=== PATIENT | female | born 1995 | race Two or more races ===

== ENCOUNTER 2016-08-16 07:26 | Emergency (ER) | payer BC ==
--- NOTE | ~2016-08-16 | ER ---
PATIENT'S NAME: SHALA [facility] AGE: 21 Y [address] ROOM: [place] [id number] LOCATION: [facility] ADMIT DATE: 08/16/2016 ER/Outpatient Report DISCHARGE DATE: 08/16/2016 FAMILY PHYSICIAN: Tsering Mujica MD ATTENDING PHYSICIAN: Nirmala Lange Time of Arrival: 0726 hours. Time of Evaluation: 0731 hours. IDENTIFICATION: A 21-year-old female. CHIEF COMPLAINT: Right-sided pain. HISTORY OF PRESENT ILLNESS: The patient is a 21-year-old female, who has had right upper quadrant pain off and on several times in the last 1 year, but today at 05:40, she woke up with sharp pain in the right upper abdomen. It was 7/10 initially. It is 4/10 now. Nausea, but no vomiting. Last bowel movement was normal. No blood in her stools. No dark, tarry, or black stools. No constipation or diarrhea. No fever or chills. The patient notices this is worse if she goes to bed with full stomach and she did eat Quesadillas last night. ALLERGIES: NO KNOWN DRUG ALLERGIES. CURRENT MEDICATIONS: No current medications. MEDICAL PROBLEMS: No medical problems. PRIOR SURGERIES: Denies. SOCIAL HISTORY: The patient lives in [place]. Dr. Mujica is her primary care physician. She does live at home. She works at [employer]. Tobacco use, denies. Alcohol use, rare. Drug use, denies. FAMILY HISTORY: Mother had gallbladder disease, otherwise negative. PATIENT'S NAME: SHALA [facility] AGE: 21 Y [address] ROOM: [place] [id number] LOCATION: [facility] ADMIT DATE: 08/16/2016 ER/Outpatient Report DISCHARGE DATE: 08/16/2016 FAMILY PHYSICIAN: Tsering Mujcia MD ATTENDING PHYSICIAN: Nirmala Lange REVIEW OF SYSTEMS: All systems reviewed and negative other than what is noted in the HPI. Last menstrual period was 3 weeks ago. She denies being sexually active. PHYSICAL EXAMINATION: VITAL SIGNS: Height 5 feet and 2-1/2 inches, weight 116.7 kg, blood pressure 130/62, pulse 84, respirations 14, temperature 97.6, and saturations 98% on room air. HEENT: Unremarkable. LUNGS: Clear to auscultation. HEART: Regular rate and rhythm. ABDOMEN: Bowel sounds present. Soft. Nondistended. Protuberant abdomen. Tender to palpation in the right upper quadrant. No rebound or guarding. Negative Canas sign. LABORATORY DATA: Labs were obtained. The patient did not want anything for pain at this time. UA showed specific gravity 1.015, pH 7, leukocytes trace, nitrites negative, 0 to 2 white cells, negative red blood cells, 0 to 2 epithelial cells, negative bacteria. Urine hCG is negative. Hemoglobin 12.2, hematocrit 38.3, platelets 346, and white count 9.0 with a normal differential. Sodium 142, potassium 4.0, chloride 109, CO2 of 27, BUN 9, creatinine 0.7, and blood sugar 119. Liver enzymes normal. Amylase 36 and lipase 123. IMPRESSION: Right upper quadrant pain, has completely resolved at this time without any pain medications. Labs look okay. Discussed with her and her mother this is possibly a cholelithiasis. PLAN: We did discuss doing an ultrasound here, they would like to wait. Handout on gallstones to look out. Diet as tolerated. Sw[place] 5/325 one to two p.o. q.4 to 6 hours p.r.n. for pain, dispensed 15 with 0 refills. Zofran 4 mg 1 p.o. q.6 hours p.r.n. for nausea, dispensed 6 with 0 refills. Follow up with Dr. Mujica on Thursday. Follow up sooner if increasing pain, nausea, vomiting, fever, chills, or problems. The patient and her mother understand and agree, and all questions have been answered. NIRMALA LANGE MD CAR/modl PATIENT'S NAME: ARA LAST [facility] AGE: 21 Y [address] ROOM: [place] [address] LOCATION: ED ADMIT DATE: 08/16/2016 ER/Outpatient Report DISCHARGE DATE: 08/16/2016 FAMILY PHYSICIAN: Tsering Mujica MD ATTENDING PHYSICIAN: Nirmala Lange /[id number] d: 08/16/16 2045 t: 08/22/16 0756, OUTPATIENT REPORT
[2016-08-16 08:03] LABS: BASOPHIL % 0.3 %; EOSINOPHIL # 0.1 K/uL (0.0-0.5); EOSINOPHIL % 1.2 %; HEMATOCRIT 38.3 % (33.0-46.0); HEMOGLOBIN 12.2 g/dL (11.0-15.0); IMMATURE GRANULOCYTE % 0.2 %; LYMPHOCYTE # 1.9 K/uL (0.8-4.0); LYMPHOCYTE % 20.6 %; MCH 28.4 pg (27.0-34.0); MCHC 31.9 gm/dL (32.0-36.5); MCV 89.1 fl (83.0-98.0); MONOCYTE # 0.5 K/uL (0.0-1.0); MPV 9.5 fl (9.4-12.4); NEUTROPHIL # (ANC) 6.4 K/uL (1.8-7.8); NEUTROPHIL % 71.7 %; NRBC % 0 /100WBC (0-0.00); PLATELET COUNT 346 K/uL (150-450); RDW-CV 13.5 % (11.9-14.6)
[2016-08-16 08:21] LABS: ALBUMIN 3.5 gm/dL (3.5-5.0); ALK PHOS 88 IU/L (33-138); ALT 24 IU/L (12-78); AST 15 IU/L (10-40); BLOOD UREA NITROGEN 9 mg/dL (6-24); CALCIUM 8.4 mg/dL (8.5-10.5); CHLORIDE 109 mMol/L (96-110); CO2 27 mMol/L (22-32); CREATININE 0.7 mg/dL (0.5-1.1); ESTIMATED GFR (MDRD EQUATION) > 60; SODIUM 142 mMol/L (135-145); TOTAL BILIRUBIN 0.2 mg/dL (0.0-1.5); TOTAL PROTEIN 7.8 g/dL (6.0-8.4)
[2016-08-16 08:42] LABS: BILIRUBIN URINE NEGATIVE (NEGATIVE); BLOOD URINE 10 /UL (NEGATIVE); COLOR URINE YELLOW (YELLOW); GLUCOSE URINE NEGATIVE (NEGATIVE); KETONE URINE NEGATIVE (NEGATIVE); LEUKOCYTES URINE 25 /UL (NEGATIVE); NITRITE URINE NEGATIVE (NEGATIVE); PROTEIN URINE NEGATIVE (NEGATIVE); SPEC GRAVITY URINE 1.015 (1.003-1.035); TURBIDITY URINE 2+ (CLEAR); UROBILINOGEN URINE NORMAL (NORMAL)
[2016-08-16 08:47] LABS: AMORPHOUS URINE 3+ (NEGATIVE); BACTERIA URINE NEGATIVE (NEGATIVE); EPITHELIAL URINE 0-2 #/HPF (NEGATIVE); RBC URINE NEGATIVE #/HPF (NEGATIVE); WBC URINE 0-2 #/HPF (NEGATIVE)
== END 2016-08-16 09:04 | disposition disaster alternative care site (69) ==
LOC: GMED 07:26
PROVIDERS: Family Medicine
DX: R10.11 Right upper quadrant pain (principal)